=== PATIENT | female | born 1975 | race Two or more races ===

== ENCOUNTER 2020-10-22 17:09 | Emergency (ER) | payer OTHER ==
[~2020-10-22] VITALS: Ht 160 cm; Wt 89.4 kg
[2020-10-22 18:14] VITALS: BP 124/77
--- NOTE | 2020-10-22 18:15 | NUR ---
RN at bedside explaining discharge plan and instructions to pt
== END 2020-10-22 19:07 | disposition home or self-care (01) ==
LOC: ED 19:00
DX: U07.1 COVID-19 (principal); J06.9 Acute upper respiratory infection, unspecified
CPT/HCPCS: 71045; 87635; 99284

== ENCOUNTER 2021-01-20 03:26 | Emergency (ER) | payer OTHER ==
[~2021-01-20] VITALS: Ht 172.7 cm; Wt 88.5 kg
[2021-01-20] MEDS ORDERED: DIPHENHYDRAMINE 50 MG/ML, 1ML IVPush ONE (04:00)
[2021-01-20] MEDS ORDERED: methylPREDNISolone SOD SUCC 125 MG/2 ML IVPush ONE (04:00)
[2021-01-20] MEDS ORDERED: DIPHENHYDRAMINE 50 MG/ML, 1ML ONE (04:09)
[2021-01-20] MEDS ORDERED: methylPREDNISolone SOD SUCC 40 MG/ML ONE (04:09)
[2021-01-20] MEDS ORDERED: methylPREDNISolone SOD SUCC 125 MG/2 ML ONE (04:10)
[2021-01-20 04:40] LABS: MICROSCOPIC NOT IND
--- NOTE | 2021-01-20 05:09 | NUR ---
Pt states having a new rash that started yesteday. Pt able to ambulate to BR. IV placed, pt medicated per order. Will monitor.
[2021-01-20 05:59] VITALS: BP 116/60
--- NOTE | 2021-01-20 06:00 | NUR ---
Pt states feeling better. Rx reviewed with pt and family. Patient/Caregiver given discharge instructions and they have confirmed that they understand the instructions. Patient ambulatory with steady gait.
== END 2021-01-20 06:02 | disposition home or self-care (01) ==
LOC: ED 05:38
DX: L50.0 Allergic urticaria (principal); R21 Rash and other nonspecific skin eruption
CPT/HCPCS: 81003; 96374; 96375; 99284; J1200; J2930

== ENCOUNTER 2021-01-22 01:39 | Emergency (ER) | payer OTHER ==
[~2021-01-22] VITALS: Ht 162.6 cm; Wt 80.0 kg
--- NOTE | 2021-01-22 01:52 | NUR ---
assessment made. chart up for MD to see. c/o rash all over body since . seen here for the same. + slight SOB. airway patent. swelling noted at the back of right ear.
--- NOTE | 2021-01-22 01:56 | NUR ---
PA at bedside.
[2021-01-22] MEDS ORDERED: DIPHENHYDRAMINE 50 MG/ML, 1ML ONE (02:10)
[2021-01-22] MEDS ORDERED: FAMOTIDINE 20 MG/2 ML ONE (02:10)
[2021-01-22 02:25] LABS: BASOPHILS % (AUTO) 1 % (0-1); EOSINOPHILS % (AUTO) 0 % (1-7); LYMPHOCYTES % (AUTO) 25 % (22-44); MEAN CORPUSCULAR HEMOGLOBIN 29.3 pg (27.0-34.8); MEAN PLATELET VOLUME 6.5 fL (7.4-10.4); MONOCYTES % (AUTO) 3 % (2-9); NEUTROPHILS % (AUTO) 72 % (42-75); PLATELET COUNT 424 x10^3/uL (130-400); RED BLOOD COUNT 4.64 x10^6/uL (3.82-5.3); RED CELL DISTRIBUTION WIDTH 14.6 % (9.6-15.2)
[2021-01-22 02:28] LABS: MD NO
[2021-01-22] MEDS ORDERED: DIPHENHYDRAMINE 50 MG/ML, 1ML IVPush ONE (02:30)
[2021-01-22] MEDS ORDERED: FAMOTIDINE 20 MG/2 ML IVPush ONE (02:30)
[2021-01-22 02:39] LABS: ALANINE AMINOTRANSFERASE 29 U/L (12-78); ANION GAP 8 mmol/L (5-15); CALCIUM 8.3 mg/dL (8.5-10.1); CHLORIDE 105 mmol/L (98-107); CREATININE 0.69 mg/dL (0.55-1.02)
--- NOTE | 2021-01-22 02:39 | NUR ---
pt dozing intermittently, resp even/unlabored, monitors in place, vss, at bedside.
[2021-01-22 02:43] LABS: ALKALINE PHOSPHATASE 122 U/L (45-117); BILIRUBIN,TOTAL 0.2 mg/dL (0.2-1.0); TOTAL PROTEIN 6.9 g/dL (6.4-8.2); TROPONIN I < 0.015 ng/mL (0.000-0.045)
[2021-01-22] MEDS ORDERED: ONDANSETRON ODT 4 MG PO ONE (04:00)
[2021-01-22] MEDS ORDERED: MAALOX/HYOSCYAMINE/LIDOCAINE 45 ML BTL PO ONE (04:00)
[2021-01-22] MEDS ORDERED: MAALOX/HYOSCYAMINE/LIDOCAINE 45 ML BTL ONE (04:17)
[2021-01-22] MEDS ORDERED: ONDANSETRON ODT 4 MG ONE (04:17)
[2021-01-22 04:33] VITALS: BP 113/67
== END 2021-01-22 04:55 | disposition home or self-care (01) ==
LOC: ED 04:04
DX: L50.0 Allergic urticaria (principal); R10.13 Epigastric pain
CPT/HCPCS: 36415; 80053; 83690; 84484; 84703; 85025; 93005; 96374; 96375; 99285; J1200; Q0162; 96372; 99283